=== PATIENT | female | born 1955 | race African-American/Black ===

== ENCOUNTER 2016-05-25 20:53 | Emergency (ER) | payer OTHER ==
[2016-05-25 21:27] VITALS: BP 203/99; PULSE 61; TEMP 98.6; BMI 40.0
--- NOTE | 2016-05-25 22:10 | EDPRACDOC ---
- General Chief Complaint: Fall Stated Complaint: FELL INJURED LT ELBOW WITH PAIN DOWN TO LT HAND Time Seen by Provider: 05/25/16 21:50 Information Source: Patient - History of Present Illness Onset: STEWARD/STEWARDESS THIRD HPI: PT PRESENTS TODAY WITH LEFT ELBOW/WRIST PAIN AFTER FOOSH EARLIER THIS EVENING. MOST PAIN WITH EXTENSION OF ELBOW. NO OTHER INJURY REPORTED. Pain Severity: Reports: Moderate Injuries/Pain Location: Reports: upper extremity Reason for Fall: Reports: tripped Loss of Consciousness: no loss of consciousness Modifying Factors: improves with: movement Associated Symptoms (Fall): Reports: denies symptoms Allergies/Adverse Reactions: Allergies celecoxib [From Celebrex] Allergy (Verified 05/25/16 23:01) Edema-Generalized morphine Allergy (Verified 05/25/16 23:02) Itching Home Medications: Ambulatory Orders Ibuprofen 600 mg PO TID #20 tablet 05/25/16 Oxycodone Immediate Release [Oxycodone Immediate Release (OxyIR)] 5 mg PO Q6H PRN #30 tab 05/25/16 ED Past Medical History - History Reviewed Yes Nurses notes reviewed and agree except as marked - Patient Medical History Cardiac History: Reports: Hypertension Psychological History: Denies: Depression EDM Review of Systems - Review of Systems ROS Negative Except as Marked: Yes All systems reviewed and were negative except as marked Constitutional: No Symptoms Reported Respiratory: No Symptoms Reported Cardiovascular: No Symptoms Reported Gastrointestinal: No Symptoms Reported Neurological: No Symptoms Reported Musculoskeletal: Elbow, Wrist Integumentary: No Symptoms Reported - Physical Exam Constitutional: Alert (Awake), No apparent distress Oriented to: Time, Person, Place Last recorded Vital Signs: Last Vital Signs Temp 98.6 F 05/25/16 21:22 Pulse 61 05/25/16 21:22 Resp 18 05/25/16 21:22 BP 203/99 H 05/25/16 21:22 Pulse Ox 98 05/25/16 21:22 Oxygen Pulse Oxygen Saturation 98 O2 Device Room Air Oxygen Flow Rate Fraction of Inspired Oxygen ( FIO2) - HEENT Head: Normal Eye Exam: Normal Neck: Normal, Denies Pain, Midline - Respiratory/Cardiovascular Respiratory: Normal - CTA Cardiovascular: Normal - GI Palpation: Normal Tenderness: Non tender - Musculoskeletal Back: Normal Extremities: Other (NO NOTED AMOUNT OF SWELLING TO LEFT ELBOW/WRIST; PT STATES PAIN WITH ELBOW EXTENSION; DISTAL PMS INTACT; ONLY VERY MINIMAL PAIN WITH FLEXION/EXTENSION OF LEFT WRIST.) - Integumentary Skin: Normal Lymphatics: Normal - Neurologic Cerebellar: Normal Mood Description: Normal Thought: Coherent Perception: Normal ED Injury/Fall Exam - Physical Exam Head Injury: no evidence of injury Extremity Exam: pain with movement Skin: Normal - [place] Coma Score Best Eye Response ([place]): (4) open spontaneously Best Verbal Response ([place]): (5) oriented Best Motor Response ([place]): (6) obeys commands [place] Total: 15 ED Procedures - Splinting 1st splint Location: LEFT ELBOW Hand-Made Type: orthoglass Splint: POSTERIOR LONG ARM Pre-Proc Neuro Vasc Exam: normal Post-Proc Neuro Vasc Exam: normal Other Devices: Sling Decision Time to Discharge: 22:48 - Departure Disposition: Home Condition: Good Final Diagnosis: Radial neck fracture Qualifiers: Encounter type: initial encounter Fracture type: closed Fracture alignment: nondisplaced Laterality: left Qualified Code(s): S52.135A - Nondisplaced fracture of neck of left radius, initial encounter for closed fracture Instructions: RICE Therapy (ED) Education/Counseling Given To: Patient, Family Member Education/Counseling Given Regarding: Diagnosis, Treatment, Follow Up Referrals: Alfonso Solano MD [Primary Care Provider] - One Week Cem Shaw MD [Staff Physician] - One Week Prescriptions: New Ibuprofen 600 mg PO TID #20 tablet Oxycodone Immediate Release [Oxycodone Immediate Release (OxyIR)] 5 mg PO Q6H PRN #30 tab PRN Reason: Pain Additional Instructions: WEAR SLING AND FOLLOW UP WITH ORTHO.
--- NOTE | 2016-05-25 22:45 | DIRPT ---
CLINICAL DATA: Fall this evening with left elbow pain and swelling. EXAM: LEFT ELBOW - COMPLETE 3+ VIEW COMPARISON: None. FINDINGS: There is a nondisplaced fracture of the radial neck. No evidence of intra-articular or radial head extension. Mild ulnar trochlear osteoarthritis. Probable joint effusion. IMPRESSION: Nondisplaced radial neck fracture with probable joint effusion. Electronically Signed By: Alley Gu M.D. On: 05/25/2016 22:42
--- NOTE | 2016-05-25 22:46 | DIRPT ---
CLINICAL DATA: Fall this evening with left wrist swelling. EXAM: LEFT WRIST - COMPLETE 3+ VIEW COMPARISON: None. FINDINGS: No fracture or dislocation. The alignment and joint spaces are maintained. Scaphoid is intact. Mild soft tissue edema. IMPRESSION: Mild soft tissue edema. No acute fracture or dislocation. Electronically Signed By: Alley Gu M.D. On: 05/25/2016 22:43
[2016-05-25] MEDS ORDERED: OXYCODONE HCL 5 MG TABLET PO ONE (22:48)
[2016-05-25] MEDS ORDERED: IBUPROFEN 600 MG TAB PO ONE (22:49)
== END 2016-05-25 23:06 | disposition home or self-care (01) ==
LOC: EDMC 20:53
DX: S52.135A Nondisplaced fracture of neck of left radius, initial encounter for closed fracture (principal); W19.XXXA Unspecified fall, initial encounter; Y93.9 Activity, unspecified
CPT/HCPCS: 29105; 73080; 73110; 99283; J3490